=== PATIENT | female | born 1970 | race Caucasian/White ===

== ENCOUNTER → 2024-07-30 | Day surgery (SDC) | payer MEDICAID ==
[~2024-07-30] MED LIST: LABE100T9 PO; LIDOCAINE HCL/PF 1% 10 MG/ML 5ML VIAL ONE; LISI10TA26 PO; SODIUM BICARBONATE 4% 2.4MEQ/5ML VIAL IV ONE
== END | disposition home or self-care (01) ==
LOC: RAD 08:33
PROVIDERS: ATTEND Surgery Surgical Oncology
DX: N64.89 Other specified disorders of breast (principal); N60.32 Fibrosclerosis of left breast; N60.31 Fibrosclerosis of right breast; N60.82 Other benign mammary dysplasias of left breast; N60.81 Other benign mammary dysplasias of right breast; N60.42 Mammary duct ectasia of left breast; N60.41 Mammary duct ectasia of right breast; Z79.899 Other long term (current) drug therapy; Z98.891 History of uterine scar from previous surgery
CPT/HCPCS: 19281; 19282; J3490 ×2; A4648

== ENCOUNTER → 2024-08-05 | Day surgery (SDC) | payer BC, MEDICAID ==
[~2024-08-05] VITALS: Ht 148.6 cm; Wt 63.5 kg
[~2024-08-05] MED LIST changes: +BUPIVACAINE HCL/PF 0.5% (5MG/ML) 10ML ONE; +EPHEDRINE SULFATE 50MG/ML VIAL ONE; +FENTANYL CITRATE/PF 50MCG/ML 2ML VIAL ONE; +HYDROMORPHONE HCL/PF 2MG/ML INJ IV PRN; +IPRATROPIUM/ALBUTEROL 0.5-3(2.5)MG/3ML NEB HHN PRN; +LABETALOL 5MG/ML 4ML INJ IV PRN; +LIDOCAINE HCL 1% 10 MG/ML 10ML VIAL ONE; +LIDOCAINE HCL/EPINEPHRINE 1%-EPI 1:100,000 20ML VIAL ONE; -LIDOCAINE HCL/PF 1% 10 MG/ML 5ML VIAL ONE; +MEPERIDINE HCL/PF 25MG/ML CPJ IV PRN; +MIDAZOLAM HCL 2 MG/2 ML VIAL ONE; +NALOXONE HCL 0.4MG/ML 1ML VIAL IV PRN; +ONDANSETRON HCL 4MG/2ML INJ IV PRN; +PROPOFOL 200MG/20ML VIAL IV ONE; -SODIUM BICARBONATE 4% 2.4MEQ/5ML VIAL IV ONE; +SUCCINYLCHOLINE CHLORIDE 200MG/10ML IV ONE
[2024-08-05] MEDS: LACTATED RINGERS 1,000 ML IV SCH (08:23)
[2024-08-05 11:55] VITALS: BP 116/71; PULSE 55; RESP 12
[2024-08-05] MEDS: HYDROMORPHONE HCL/PF 1MG/ML INJ IV PRN (11:55)
== END | disposition home or self-care (01) ==
LOC: OR 07:12
PROVIDERS: ATTEND Surgery Surgical Oncology
DX: N60.91 Unspecified benign mammary dysplasia of right breast (principal); N60.92 Unspecified benign mammary dysplasia of left breast; N62 Hypertrophy of breast; N64.89 Other specified disorders of breast; Z79.899 Other long term (current) drug therapy; Z98.890 Other specified postprocedural states
CPT/HCPCS: 19120; 88305; 76098; J3010; J3490 ×4; J2250; J2704; J0330; J1171; J7030